=== PATIENT | male | born 1995 | race Two or more races ===

== ENCOUNTER 2020-02-18 20:53 | Emergency (ER) | payer OTHER, BC ==
[~2020-02-18] VITALS: Ht 170.2 cm; Wt 79.4 kg
[2020-02-18] MEDS ORDERED: ORPHENADRINE C100 MG PO (23:08)
[2020-02-18] MEDS ORDERED: NAPROXEN375 MG PO (23:08)
== END 2020-02-18 23:53 | disposition home or self-care (01) ==
LOC: ER 20:53
DX: R07.89 Other chest pain (principal); M94.0 Chondrocostal junction syndrome [Tietze]; Z03.818 Encounter for observation for suspected exposure to other biological agents ruled out